=== PATIENT | male | born 1980 | race Caucasian/White ===

== ENCOUNTER 2024-10-07 17:59 | Emergency (ER) | payer BC, SELFPAY ==
--- NOTE | ~2024-10-07 | XR_ITS ---
HISTORY: stab at 2nd MCP COMPARISON: None TECHNIQUE: 3 views of the left hand were performed. FINDINGS: No acute fracture is identified. The joint spaces are preserved. The carpal arcs are intact. Mild radiocarpal joint space narrowing with sclerosis of the distal radius is present. Bone mineralization is unremarkable. No significant soft tissue swelling. No radiopaque foreign body is identified. IMPRESSION: No acute fracture or dislocation within the left hand, as detailed above. Reviewed, dictated and finalized at location A. [facility]
[2024-10-07 18:09] VITALS: BP 118/68; PULSE 67; RESP 15; TEMP 36.4; O2SAT 100
--- NOTE | 2024-10-07 18:59 | ED_ITS ---
HPI - General Adult General Chief complaint: Wound/Laceration <Prema Samayoa December ELECTRIC SCREW DRIVER OPERATOR - Last Filed: 10/07/24 19:03> Stated complaint: LAC L HAND. <Prema Samayoa December ELECTRIC SCREW DRIVER OPERATOR - Last Filed: 10/07/24 19:03> Time Seen by Provider: 10/07/24 18:59 <Prema Samaoya December, ELECTRIC SCREW DRIVER OPERATOR - Last Filed: 10/07/24 19:03> Focused HPI: Marcelino Roberson is a 43 y/o male reports that he was trying to knife out the pit of an avocado and slipped and stabbed his left palmar second phalanx / still oozing blood approx 2 cm He is not sure when his last Tdap was. GENERAL: Well-appearing, well-nourished, and in no acute distress. HEAD: Normocephalic, atraumatic. CHEST: Clear to auscultation. ?No respiratory distress. HEART: Regular rate and rhythm.? NEURO: ?Alert and oriented x3. Patient screened in triage and initial orders placed.? ?Additional care and disposition to be based upon?diagnostic testing and treatment. <Prema Samayoa December, ELECTRIC SCREW DRIVER OPERATOR - Last Filed: 10/07/24 19:03> History of Present Illness HPI narrative: Agree with HPI <Zacarias Hartmann MD - Last Filed: 10/07/24 21:45> Related Data Allergies/adverse reactions: Allergies Allergy/AdvReac Type Severity Reaction Status Date / Time No Known Allergies Allergy Verified 10/07/24 18:01 <Prema Samayoa December, ELECTRIC SCREW DRIVER OPERATOR - Last Filed: 10/07/24 19:03> Review of Systems Constitutional: Constitutional: Reports no additional constitutional co mplaints <Zacarias Hartmann MD - Last Filed: 10/07/24 21:45> Integumentary/Breasts: Skin/Breast: Reports system reviewed and no additional complaints, except as docu <Zacarias Hartmann MD - Last Filed: 10/07/24 21:45> Neurologic: Reports system reviewed and no additional complaints, except as documented <Zacarias Hartmann MD - Last Filed: 10/07/24 21:45> PMFSH Past Medical History Medical History: Medical History (Updated 10/07/24 @ 21:16 by Zacarias Hartmann MD) Healthy adult male <Prema Posada APRN - Last Filed: 10/07/24 19:03> Exam Narrative: GENERAL: Well-appearing, well-nourished, and in no acute distress. HEAD: Normocephalic, atraumatic. EXTREMITIES: Left hand with full range of motion of all digits and neurovascular intact with sharp touch. SKIN: Warm, dry, no rash. To cm palm or stab wound left hand at the 2nd MCP with small exit puncture on dorsal aspect. NEURO: No focal deficits. Alert and oriented x3. PSYCH: Normal mood and affect. <Zacarias Hartmann MD - Last Filed: 10/07/24 21:45> Course Course Emergency Course: Wound sutured and irrigated. Oral antibiotics for home. Tetanus updated. X-ray without bony injury. <Zacarias Hartmann MD - Last Filed: 10/07/24 21:45> Vital Signs Vital signs: Vital Signs Temperature 97.5 F L 10/07/24 18:09 Pulse Rate 67 10/07/24 18:09 Respiratory Rate 15 10/07/24 18:09 Blood Pressure 118/68 10/07/24 18:09 Pulse Oximetry 100 10/07/24 18:09 Oxygen Delivery Room Air 10/07/24 18:09 Temperature 97.5 F L 10/07/24 18:09 Pulse Rate 67 10/07/24 18:09 Respiratory Rate 15 10/07/24 18:09 Blood Pressure 118/68 10/07/24 18:09 Pulse Oximetry 100 10/07/24 18:09 Oxygen Delivery Room Air 10/07/24 18:09 <Prema Posada ELECTRIC SCREW DRIVER OPERATOR - Last Filed: 10/07/24 19:03> Vital Signs Temperature 97.5 F L 10/07/24 18:09 Pulse Rate 67 10/07/24 18:09 Respiratory Rate 15 10/07/24 18:09 Blood Pressure 118/68 10/07/24 18:09 Pulse Oximetry 100 10/07/24 18:09 Oxygen Delivery Room Air 10/07/24 18:09 Temperature 97.5 F L 10/07/24 18:09 Pulse Rate 67 10/07/24 18:09 Respiratory Rate 15 10/07/24 18:09 Blood Pressure 118/68 10/07/24 18:09 Pulse Oximetry 100 10/07/24 18:09 Oxygen Delivery Room Air 10/07/24 18:09 <Zacarias Hartmann MD - Last Filed: 10/07/24 21:45> Procedures Laceration Laceration 1: Site: hand <Zacarias Hartmann MD - Last Filed: 10/07/24 21:45> Side (If applicable): left <Zacarias Hartmann MD - Last Filed: 10/07/24 21:45> Size (cm): 2 <Zacarias Hartmann MD - Last Filed: 10/07/24 21:45> Description: linear <Zacarias Hartmann MD - Last Filed: 10/07/24 21:45> Depth: simple, single layer <Zacarias Hartmann MD - Last Filed: 10/07/24 21:45> Local Anesthetic: lidocaine 1% <Zacarias Hartmann MD - Last Filed: 10/07/24 21:45> Pre-repair: wound explored, irrigated extensively and deep structures intact <Zacarias Hartmann MD - Last Filed: 10/07/24 21:45> ====== Skin Level ======: Skin layer closed with: nylon <Zacarias Hartmann MD - Last Filed: 10/07/24 21:45> Size (cm): 5-0 <Zacarias Hartmann MD - Last Filed: 10/07/24 21:45> Number of sutures: 4 <Zacarias Hartmann MD - Last Filed: 10/07/24 21:45> Technique: simple, interrupted <Zacarias Hartmann MD - Last Filed: 10/07/24 21:45> ====== Subcutaneous Layer ======: ====== Muscle Layer ======: ====== Tendon Layer ======: Medical Decision Making Vital Signs Vital Signs: Vital Signs Temperature 97.5 F L 10/07/24 18:09 Pulse Rate 67 10/07/24 18:09 Respiratory Rate 15 10/07/24 18:09 Blood Pressure 118/68 10/07/24 18:09 Pulse Oximetry 100 10/07/24 18:09 Oxygen Delivery Room Air 10/07/24 18:09 Temperature 97.5 F L 10/07/24 18:09 Pulse Rate 67 10/07/24 18:09 Respiratory Rate 15 10/07/24 18:09 Blood Pressure 118/68 10/07/24 18:09 Pulse Oximetry 100 10/07/24 18:09 Oxygen Delivery Room Air 10/07/24 18:09 <Prema Posada ELECTRIC SCREW DRIVER OPERATOR - Last Filed: 10/07/24 19:03> Vital Signs Temperature 97.5 F L 10/07/24 18:09 Pulse Rate 67 10/07/24 18:09 Respiratory Rate 15 10/07/24 18:09 Blood Pressure 118/68 10/07/24 18:09 Pulse Oximetry 100 10/07/24 18:09 Oxygen Delivery Room Air 10/07/24 18:09 Temperature 97.5 F L 10/07/24 18:09 Pulse Rate 67 10/07/24 18:09 Respiratory Rate 15 10/07/24 18:09 Blood Pressure 118/68 10/07/24 18:09 Pulse Oximetry 100 10/07/24 18:09 Oxygen Delivery Room Air 10/07/24 18:09 <Zacarias Hartmann MD - Last Filed: 10/07/24 21:45> Imaging Data Radiologist's impression: ITS Impressions Hand X-Ray 10/07/24 21:21 IMPRESSION: No acute fracture or dislocation within the left hand, as detailed above. <Zacarias Hartmann MD - Last Filed: 10/07/24 21:45> Discharge Plan Discharge Clinical Impression: Hand laceration <Prema Posada, ELECTRIC SCREW DRIVER OPERATOR - Last Filed: 10/07/24 19:03> Patient Disposition: Home, Self-Care <Prema Posada, ELECTRIC SCREW DRIVER OPERATOR - Last Filed: 10/07/24 19:03> Condition: Stable <Prema Posada, ELECTRIC SCREW DRIVER OPERATOR - Last Filed: 10/07/24 19:03> Instructions: Antibiotic Form, Care For Your Stitches (ED) <Prema Posada, ELECTRIC SCREW DRIVER OPERATOR - Last Filed: 10/07/24 19:03> Additional Instructions: Return ER if your wound is draining pus, your hand is red and swollen, you have additional concerns. You will need your sutures removed in 14 days. <Prema Posada, ELECTRIC SCREW DRIVER OPERATOR - Last Filed: 10/07/24 19:03> Patient Language: Persian <Prema Posada APRN - Last Filed: 10/07/24 19:03> Prescriptions: New amoxicillin-pot clavulanate 875-125 mg tablet 1 tablet PO Q12H Qty: 10 0RF <Prema Posada, ELECTRIC SCREW DRIVER OPERATOR - Last Filed: 10/07/24 19:03> Follow-up/Referrals: PHYSICIAN,SENIOR MECHANICAL PROJECT ENGINEER [Primary Care Provider] - 1 Week <Prema Posada, ELECTRIC SCREW DRIVER OPERATOR - Last Filed: 10/07/24 19:03>
[2024-10-07] MEDS: TETANUS,DIPHTHERIA,AC PERTUSSIS ADULT (0.5 ML) BOOSTRIX IM (20:58)
--- OUTSIDE RECORDS SUMMARY | 2024-10-07 21:19 | XMS_ITS | Encounter Summary ---
Author Organization [facility] Address [address] [place] [address] Care Team Providers Care Mri Manager Name Role Phone Oneyda Ramachandran MD Primary Care Pr ovider [facility] Jayjay Munroe MD Primary Care Provider [phone] Encounter Details Date Type Department Care Team (Late st Contact Info) Description 11/25/20[address] [employer] [address] Message [address] [facility] [address] [place] [address] Unified Inbox, [facility] Provider Lab results Social History Tobacco Use Types Packs/Day Years Used Date Smoking Tobacco: Never Smokeless Tobacco: Never Alcohol Use Standard Drinks/Week Comments Not Currently 0 (1 standard drink = 0.6 oz pure alcohol) 3 drinks per wk (beer or liquor) PHQ-2 Answer Date Recorded Patient Health Questionnaire-2 Score 1 11/21/2022 Sex and Gender Information Value Date Recorded Sex Assigned at Not on file Legal Sex Male 10:11 AM CDT Gender Identity Not on file Sexual Orientation Not on file COVID-19 Exposure Response Date Recorded In the last 10 days, have yo u been in contact with someone who was confirmed or suspected to have Coronavirus/COVID-19? No / Unsure 11/21/2022 3:02 PM CDT documented as of this encounter Plan of Treatment Not on file documented as of this encounter Visit Diagnoses Not on filedocumented in this encounter Care Teams Mri Manager Relationship Specialty Start Date End Date Oneyda Ramachandran MD PCP - General FAMILY PRACTICE 11/21/22 01/26/23 Jayjay Munroe MD [address] [address] PCP - General INTERNAL MEDICINE 01/27/23 documented as of this encounter
--- OUTSIDE RECORDS SUMMARY | 2024-10-07 21:19 | XMS_ITS | Clinical Summary ---
Author Organization [facility] Address [address] [place] [address] Care Team Providers Care Case Planner Name Role Phone Jayjay Munroe MD Primary Care Provider [phone] Allergies No known active allergies Medications No known medications Active Problems No known active problems Resolved Problems Problem Noted Date Diagnosed Date Resolved Date Vegetarian diet 11/24/2022 11/25/2022 Immunizations Name Administration Dates Next Due MODERNA COVID-19 BIVALENT (12+), MRNA, LNP-S, PF 06/14/2022 Family History Medical History Relation Comments Epilepsy Brother No Known Problems Father Prostate Cancer Paternal Uncle Relation Status Comments Brother Alive Father Alive Mother Paternal Uncle Alive Social History Tobacco Use Types Packs/Day Years [...] on file Sexual Orientation Not on file Last Filed Vital Signs Vital Sign Reading Time Taken Comments Blood Pressure 112/80 11/21/2022 3:29 PM CDT Pulse 63 11/21/2022 3:29 PM CDT Temperature 37.2 C (99 F) 11/21/2022 3:29 PM CDT Respiratory Rate 16 11/21/2022 3:29 PM CDT Oxygen Saturation 99% 11/21/2022 3:29 PM CDT Inhaled Oxygen Concentration - - Weight 73.3 kg (161 lb 8 oz) 11/21/2022 3:29 PM CDT Height 176.5 cm (5' 9.5 ) 11/21/2022 3:29 PM CDT Body Mass Index 23.51 11/21/2022 3:29 PM CDT Plan of Treatment Health Maintenance Due Date Last Done Comments Annual Physical 1984 Hepatitis C 12/16/1999 DTaP, Tdap and Td Vaccines ( 1 - Tdap) 2000 Hepatitis B Vaccines (1 of 3 - 19+ 3-dose series) 2000 COVID-19 Vaccine (2 - 2023-2 5 season) 2024 06/14/2022 Influenza Adult (#1) 2024 PHQ-2 (Physician [place]) 08/25/2024 11/21/2022 HPV Vaccines Aged Out No longer eligi ble based on patient's age to complete this topic Meningococcal B Vaccine Aged Out No l onger eligible based on patient's age to complete this topic Meningococcal Vaccine Aged Out No shemar sarath eligible based on patient's age to complete this topic Pneumococcal Vaccine: Pediat rics (0 to 5 Years) and At-Risk Patients (6 to 64 Years) Aged Out No longer eligi ble based on patient's age to complete this topic RSV Immunizations Under 20 Months Aged Out No longer eligible based on patient's age to complete this topic [place] [address] [place] [id number] Care Teams Case Planner Relationship Specialty Start Date End Date Jayjay uMnroe MD [facility] [address] [address] PCP - General INTERNAL MEDICINE 01/27/23
[2024-10-07] MEDS: AMOXICILLIN/CLAVULANATE K 875-125 MG TAB 1 TABLET PO (21:44)
[2024-10-07 21:55] VITALS: BP 120/78; PULSE 71; RESP 16; O2SAT 100
== END 2024-10-07 22:23 | disposition home or self-care (01) ==
PROVIDERS: Emergency Provider Emergency Medicine
DX: S61.211A Laceration without foreign body of left index finger without damage to nail, initial encounter (principal); Z23 Encounter for immunization; W26.0XXA Contact with knife, initial encounter; Y93.G1 Activity, food preparation and clean up
CPT/HCPCS: 12001; 73130; 90471; 90715; 99283; A9270